=== PATIENT | female | born 1960 | race Caucasian/White ===

== ENCOUNTER 2023-11-13 17:44 | Emergency (ER) | payer OTHER ==
[2023-11-13] MEDS ORDERED: Amoxicillin/Potassium Clav 875 MG TAB ONE (19:46)
[2023-11-13] MEDS ORDERED: Boostrix 0.5 ML (Tdap) VIAL (>/=7 yrs of age) ONE (19:47)
[2023-11-13] MEDS ORDERED: Rabies Immune Globulin/PF 300 UNITS/ML VIAL ONE ×2 (19:47→19:51)
[2023-11-13] MEDS ORDERED: HYDROcodone/Acetaminophen 10/325 mg Tablet ONE (19:47)
[2023-11-13] MEDS ORDERED: Rabies Vaccine Human 2.5 UNITS VIAL ONE (19:47)
== END 2023-11-13 21:05 | disposition home or self-care (01) ==
LOC: NAV ERS 17:44
DX: S81.851A Open bite, right lower leg, initial encounter (principal); I10 Essential (primary) hypertension; W55.51XA Bitten by raccoon, initial encounter; Y99.8 Other external cause status; Z23 Encounter for immunization; Z79.899 Other long term (current) drug therapy
CPT/HCPCS: 90375; 90471; 90472; 90675; 90715

== ENCOUNTER → 2023-11-16 | Day surgery (SDC) | payer OTHER ==
[~2023-11-16] MED LIST: Rabies Vaccine Human 2.5 UNITS VIAL ONE
== END ==
LOC: NAV ER/OP 08:53
PROVIDERS: ATTEND Emergency Medicine
DX: Z23 Encounter for immunization (principal)
CPT/HCPCS: 90675